=== PATIENT | male | born 1960 | race Hispanic/Latino ===

== ENCOUNTER 2018-10-27 03:49 | Observation (INO) | payer SELFPAY ==
--- NOTE | 2018-10-27 04:53 | XRay Report ---
CHEST 1 VIEW INDICATION: Chest Pain. COMPARISON: None FINDINGS: Support devices: None. Heart: Within normal limits. Lungs/Pleura: No acute air space or interstitial disease. Additional findings: None. IMPRESSION: 1. No acute findings. Signer Name: Austin John MD Signed: 10/27/2018 4:48 AM Workstation Name: [id number]
--- NOTE | 2018-10-27 05:04 | Cat Scan Report ---
CT head without contrast HISTORY: syncope, head injury. TECHNIQUE: Axial imaging performed from the skull apex through the skull base without the use of con trast. All CT scans at this location are performed using CT dose reduction for ALARA by means of aut omated exposure control. COMPARISON: None FINDINGS: Parenchyma: No acute intracranial hemorrhage or parenchymal abnormality. Ventricles: There is mild diffuse brain atrophy with commensurate ventricular enlargement which is l ikely age appropriate. Soft tissues: Soft tissues including the orbits appear normal. Bones: No acute osseous abnormality. Sinuses: Sinuses and mastoid air cells are clear. IMPRESSION: No acute abnormality. Signer Name: Austin John MD Signed: 10/27/2018 5:00 AM Workstation Name: [id number]
--- NOTE | 2018-10-27 05:05 | Cat Scan Report ---
CT cervical spine without contrast INDICATION: syncope, head injury. TECHNIQUE: Axial imaging performed through the cervical spine without the use of contrast. Sagittal and coronal reconstructed images were also reviewed. All CT scans at this location are performed us ing CT dose reduction for ALARA by means of automated exposure control. COMPARISON: None FINDINGS: Alignment: Spinal alignment is normal. Bones: There is no acute osseous abnormality. Mild multilevel discogenic DJD is present. Soft tissues: No acute or significant incidental soft tissue abnormality. IMPRESSION: No acute abnormality. Signer Name: Austin John MD Signed: 10/27/2018 5:01 AM Workstation Name: [id number]
--- NOTE | 2018-10-27 06:21 | Emergency Department Report ---
ED Chest Pain HPI - General Chief Complaint: Chest Pain Stated Complaint: CHEST PAIN Time Seen by Provider: 10/27/18 06:19 Source: patient, EMS Mode of arrival: Stretcher Limitations: No Limitations - History of Present Illness Initial Comments: She is a 58-year-old female presents emergency room complaints of chest pain. Patient states chest pain is left chest radiating to his neck. Patient states his pain is 10 out of 10. Patient states pain is better with rest and worse with exertion. Patient is also complaining of dizziness and weakness. Patient complains of a syncopal episode recently. Patient states when he passed out he hit his head. Patient denies headache at this time. MD Complaint: chest pain -: Sudden Onset: during rest Pain Location: substernal, left chest Pain Radiation: neck Severity: severe Severity scale (0 -10): 10 Quality: sharp Consistency: constant Improves With: rest Worsens With: exertion re: nausea. denies: vomting, diaphoresis, dyspnea, sense of impending doom Other Symptoms: denies: cough, fever, syncope, rash, acid taste in mouth, leg swelling, palpitations, burping Treatments Prior to Arrival: none Aspirin use within the Past 7 Days: (1) Yes - Related Data On Oral Contraceptives: No Home Medications Medication Instructions Recorded Confirmed Last Taken Aspirin EC [Halfprin EC] 81 mg PO QDAY 10/27/18 10/27/18 Unknown Clopidogrel [Plavix] 75 mg PO QDAY 10/27/18 10/27/18 Unknown Furosemide [Lasix] 20 mg PO QDAY 10/27/18 10/27/18 Unknown Gabapentin [Neurontin] 800 mg PO TID 10/27/18 10/27/18 Unknown Lansoprazole [Prevacid] 30 mg PO QDAY 10/27/18 10/27/18 Unknown Lisinopril [Zestril TAB] 40 mg PO QDAY 10/27/18 10/27/18 Unknown Metoprolol [Lopressor] 25 mg PO BID 10/27/18 10/27/18 Unknown Oxycodone HCl [oxyCODONE] 10 mg PO BID 10/27/18 10/27/18 Unknown Simvastatin 40 mg PO HS 10/27/18 10/27/18 Unknown Tamsulosin [Flomax] 0.4 mg PO 10/27/18 10/27/18 Unknown Allergies Allergy/AdvReac Type Severity Reaction Status Date / Time Penicillins Allergy Unknown Verified 10/27/18 03:56 Heart Score - HEART Score History: Moderately suspicious EKG: Non-specific Age: 45-65 Risk factors: > 3 risk factors or hx of atherosclerotic disease Troponin: < normal limit HEART Score: 5 ED Review of Systems ROS: Stated complaint: CHEST PAIN Other details as noted in HPI Constitutional: denies: chills, fever Eyes: denies: eye pain, eye discharge, vision change ENT: denies: ear pain, throat pain Respiratory: denies: cough, shortness of breath, wheezing Cardiovascular: as per HPI, chest pain. denies: palpitations Endocrine: no symptoms reported Gastrointestinal: denies: abdominal pain, nausea, diarrhea Genitourinary: denies: urgency, dysuria Musculoskeletal: denies: back pain, joint swelling, arthralgia Skin: denies: rash, lesions Neurological: weakness. denies: headache, paresthesias Psychiatric: denies: anxiety, depression Hematological/Lymphatic: denies: easy bleeding, easy bruising ED Past Medical Hx - Past Medical History Previous Medical History?: Yes Hx Hypertension: Yes Hx CVA: Yes Hx Heart Attack/AMI: Yes Hx Congestive Heart Failure: Yes Additional medical history: "broken back" - Surgical History Past Surgical History?: Yes Hx Internal Defibrillator: Yes - Family History Family history: no significant - Social History Smoking Status: Current Every Day Smoker Substance Use Type: Marijuana, Prescribed - Medications Home Medications: Home Medications Medication Instructions Recorded Confirmed Last Taken Type Aspirin EC [Halfprin EC] 81 mg PO QDAY 10/27/18 10/27/18 Unknown History Clopidogrel [Plavix] 75 mg PO QDAY 10/27/18 10/27/18 Unknown History Furosemide [Lasix] 20 mg PO QDAY 10/27/18 10/27/18 Unknown History Gabapentin [Neurontin] 800 mg PO TID 10/27/18 10/27/18 Unknown History Lansoprazole [Prevacid] 30 mg PO QDAY 10/27/18 10/27/18 Unknown History Lisinopril [Zestril TAB] 40 mg PO QDAY 10/27/18 10/27/18 Unknown History Metoprolol [Lopressor] 25 mg PO BID 10/27/18 10/27/18 Unknown History Oxycodone HCl [oxyCODONE] 10 mg PO BID 10/27/18 10/27/18 Unknown History Simvastatin 40 mg PO HS 10/27/18 10/27/18 Unknown History Tamsulosin [Flomax] 0.4 mg PO HS 10/27/18 10/27/18 Unknown History ED Physical Exam - General Limitations: No Limitations General appearance: alert, in no apparent distress - Head Head exam: Present: atraumatic, normocephalic - Eye Eye exam: Present: normal appearance - ENT ENT exam: Present: mucous membranes moist - Neck Neck exam: Present: normal inspection - Respiratory Respiratory exam: Present: normal lung sounds bilaterally. Absent: respiratory distress - Cardiovascular Cardiovascular Exam: Present: regular rate, normal rhythm. Absent: systolic murmur, diastolic murmur, rubs, gallop - GI/Abdominal GI/Abdominal exam: Present: soft, normal bowel sounds - Rectal Rectal exam: Present: deferred - Extremities Exam Extremities exam: Present: normal inspection - Back Exam Back exam: Present: normal inspection - Neurological Exam Neurological exam: Present: alert, oriented X3 - Psychiatric Psychiatric exam: Present: normal affect, normal mood - Skin Skin exam: Present: warm, dry, intact, normal color. Absent: rash ED Course Vital Signs 10/27/18 10/27/18 10/27/18 03:56 04:09 05:01 Temperature 98.9 F 98.1 F Pulse Rate 108 H 83 79 Respiratory 14 14 16 Rate Blood Pressure 112/69 146/91 Blood Pressure 146/91 [Left] O2 Sat by Pulse 96 99 99 Oximetry 10/27/18 10/27/18 10/27/18 06:01 07:01 08:01 Temperature Pulse Rate 78 83 71 Respiratory 20 16 17 Rate Blood Pressure 146/91 146/91 132/85 Blood Pressure [Left] O2 Sat by Pulse 99 97 99 Oximetry 10/27/18 10/27/18 10/27/18 09:00 10:00 11:00 Temperature Pulse Rate 86 86 83 Respiratory 16 18 17 Rate Blood Pressure 145/101 151/98 157/96 Blood Pressure [Left] O2 Sat by Pulse 96 97 98 Oximetry 10/27/18 12:00 Temperature Pulse Rate 83 Respiratory 14 Rate Blood Pressure 153/91 Blood Pressure [Left] O2 Sat by Pulse 96 Oximetry - Reevaluation(s) Reevaluation #1: Patient has refused the ER nurses to place a IV or draw blood. Patient has refused me to do an ultrasound-guided EJ or even start ultrasound-guided peripheral line. Patient states he only wants the PICC team to come down and placed an IV 10/27/18 07:02 IV team at bedside. 10/27/18 09:00 Reevaluation #2: I discussed all results the patient. Patient will be admitted to the hospitalist service. Patient agrees to plan of care. 10/27/18 09:59 - Consultations Consultation #1: Hospitalist consulted for admission. Hospitalist to admit patient. Bridge orders placed 10/27/18 09:59 FABIAN score - Fabian Score Age > 65: (0) No Aspirin use within the Past 7 Days: (1) Yes 3 or more CAD Risk Factors: (1) Yes 2 or more Angina events in past 24 hrs: (0) No Known CAD with more than 50% Stenosis: (0) No Elevated Cardiac Markers: (0) No ST Deviation Greater than 0.5mm: (0) No FABIAN Score: 2 ED Medical Decision Making - Lab Data Result diagrams: 10/27/18 09:12 10/27/18 09:12 - EKG Data -: EKG Interpreted by Me EKG shows normal: sinus rhythm, axis, intervals, QRS complexes, ST-T waves Rate: normal - Radiology Data Radiology results: report reviewed, image reviewed interpreted by me: No acute findings. Pacer noted CT head without contrast HISTORY: syncope, head injury. TECHNIQUE: Axial imaging performed from the skull apex through the skull base without the use of contrast. All CT scans at this location are performed using CT dose reduction for ALARA by means of automated exposure control. COMPARISON: None FINDINGS: Parenchyma: No acute intracranial hemorrhage or parenchymal abnormality. Ventricles: There is mild diffuse brain atrophy with commensurate ventricular enlargement which is likely age appropriate. Soft tissues: Soft tissues including the orbits appear normal. Bones: No acute osseous abnormality. Sinuses: Sinuses and mastoid air cells are clear. IMPRESSION: No acute abnormality. CHEST 1 VIEW INDICATION: Chest Pain. COMPARISON: None FINDINGS: Support devices: None. Heart: Within normal limits. Lungs/Pleura: No acute air space or interstitial disease. Additional findings: None. IMPRESSION: 1. No acute findings. CT cervical spine without contrast INDICATION: syncope, head injury. TECHNIQUE: Axial imaging performed through the cervical spine without the use of contrast. Sagittal and coronal reconstructed images were also reviewed. All CT scans at this location are performed using CT dose reduction for ALARA by means of automated exposure control. COMPARISON: None FINDINGS: Alignment: Spinal alignment is normal. Bones: There is no acute osseous abnormality. Mild multilevel discogenic DJD is present. Soft tissues: No acute or significant incidental soft tissue abnormality. IMPRESSION: No acute abnormality. - Medical Decision Making Patient is a 58-year-old male presents with left-sided chest pain. Patient is high risk. Patient's labs done and unremarkable. Basic chest x-ray negative. Patient also had complaints of syncope and chest pain radiating to his neck, so a CT head and neck were done and were negative. Patient admitted to the hospitalist service. - Differential Diagnosis chest pain. Syncope. Dizziness. Weakness. Critical Care Time: Yes Critical care attestation.: If time is entered above; I have spent that time in minutes in the direct care of this critically ill patient, excluding procedure time. Critical Care Time: 45 minutes ED Disposition Clinical Impression: Dizziness Chest pain Qualifiers: Chest pain type: unspecified Qualified Code(s): R07.9 - Chest pain, unspecified Syncope Qualifiers: Syncope type: unspecified Qualified Code(s): R55 - Syncope and collapse Disposition: -09 OP ADMIT IP TO THIS HOSP Is pt being admited?: Yes Does the pt Need Aspirin: No Condition: Critical Time of Disposition: 10:01
[2018-10-27 09:35] LABS: Basophils # (Auto) 0.1 K/mm3 (0.0-0.1); Basophils % (Auto) 1.1 % (0.0-1.8); Eosinophils # (Auto) 0.6 K/mm3 (0.0-0.4); Eosinophils % (Auto) 9.3 % (0.0-4.3); Hematocrit 31.4 % (35.5-45.6); Hemoglobin 10.3 gm/dl (11.8-15.2); Lymphocytes # (Auto) 1.5 K/mm3 (1.2-5.4); Lymphocytes % (Auto) 25.5 % (13.4-35.0); Mean Corpuscular HGB Conc 33 % (32-34); Mean Corpuscular Volume 77 fl (84-94); Monocytes # (Auto) 0.7 K/mm3 (0.0-0.8); Monocytes % (Auto) 11.2 % (0.0-7.3); Platelet Count 264 K/mm3 (140-440); Red Blood Count 4.11 M/mm3 (3.65-5.03); Red Cell Distribution Width 18.8 % (13.2-15.2)
[2018-10-27 09:42] LABS: INR 1.06 (0.87-1.13)
[2018-10-27] MEDS ORDERED: ASPIRIN PO ONE (09:42)
[2018-10-27] MEDS ORDERED: MORPHINE IM ONE (09:42)
[2018-10-27 09:48] LABS: BUN/Creatinine Ratio 14; Blood Urea Nitrogen 13 mg/dL (9-20); Calcium 8.6 mg/dL (8.4-10.2); Hemolysis Index 3
[2018-10-27 09:51] LABS: Partial Thromboplastin Time 23.7 Sec. (24.2-36.6)
--- NOTE | 2018-10-27 10:19 | History and Physical Report ---
History of Present Illness Date of examination: 10/27/18 Date of admission: 10/27/18 Chief complaint: chest pain and syncope History of present illness: She is a 58-year-old male with extensive cardiac history presented emergency room complaints of chest pain and a syncopal episode. Patient states chest pain is left chest radiating to his neck, 10 out of 10 in intensity, pain is better with rest and worse with exertion. Patient is also complaining of dizziness and weakness along with a [place]. Patient states that simillar episode happened multiple times in the past. Patient denies any headache at this time. CT head/Neck in the ER unremarkable. Patient also in chronic pain Mx. His Zachary are normal. He is being admitted for further evaluation and management. Review of Systems Constitutional: denies: chills, fever Eyes: denies: eye pain, eye discharge, vision change ENT: denies: ear pain, throat pain Respiratory: denies: cough, shortness of breath, wheezing Cardiovascular: as per HPI, chest pain. denies: palpitations Endocrine: no symptoms reported Gastrointestinal: denies: abdominal pain, nausea, diarrhea Genitourinary: denies: urgency, dysuria Musculoskeletal: denies: back pain, joint swelling, arthralgia Skin: denies: rash, lesions Neurological: weakness. denies: headache, paresthesias Psychiatric: denies: anxiety, depression Hematological/Lymphatic: denies: easy bleeding, easy bruising Past History Past Medical History: atrial fib (s/p ablation), CAD (s/p stent placement), GERD, hypertension, hyperlipidemia, stroke (with residual right sideded weakness), other (SSS s/p pacemaker, asthma) Past Surgical History: tonsillectomy, Other (s/p ablation for atrial fib, PCM placement) Social history: denies: smoking, alcohol abuse, IV drug use Family history: hypertension, other (HD in brother, ovarian cancer in Mother and sisters) Medications and Allergies Allergies Allergy/AdvReac Type Severity Reaction Status Date / Time Penicillins Allergy Unknown Verified 10/27/18 03:56 Home Medications Medication Instructions Recorded Confirmed Last Taken Type Aspirin EC [Halfprin EC] 81 mg PO QDAY 10/27/18 10/27/18 Unknown History Clopidogrel [Plavix] 75 mg PO QDAY 10/27/18 10/27/18 Unknown History Furosemide [Lasix] 20 mg PO QDAY 10/27/18 10/27/18 Unknown History Gabapentin [Neurontin] 800 mg PO TID 10/27/18 10/27/18 Unknown History Lansoprazole [Prevacid] 30 mg PO QDAY 10/27/18 10/27/18 Unknown History Lisinopril [Zestril TAB] 40 mg PO QDAY 10/27/18 10/27/18 Unknown History Metoprolol [Lopressor] 25 mg PO BID 10/27/18 10/27/18 Unknown History Oxycodone HCl [oxyCODONE] 10 mg PO BID 10/27/18 10/27/18 Unknown History Simvastatin 40 mg PO HS 10/27/18 10/27/18 Unknown History Tamsulosin [Flomax] 0.4 mg PO HS 10/27/18 10/27/18 Unknown History Exam - Physical Exam Narrative exam: - General Limitations: No Limitations General appearance: alert, in no apparent distress - Head Head exam: Present: atraumatic, normocephalic - Eye Eye exam: Present: normal appearance - ENT ENT exam: Present: mucous membranes moist - Neck Neck exam: Present: normal inspection - Respiratory Respiratory exam: Present: normal lung sounds bilaterally. Absent: respiratory distress - Cardiovascular Cardiovascular Exam: Present: regular rate, normal rhythm. Absent: systolic murmur, diastolic murmur, rubs, gallop - GI/Abdominal GI/Abdominal exam: Present: soft, normal bowel sounds - Rectal Rectal exam: Present: deferred - Extremities Exam Extremities exam: Present: normal inspection - Back Exam Back exam: Present: normal inspection - Neurological Exam Neurological exam: Present: alert, oriented X3 - Psychiatric Psychiatric exam: Present: normal affect, normal mood - Constitutional Vitals: Temp Pulse Resp BP Pulse Ox 98.1 F 86 18 151/98 97 10/27/18 04:09 10/27/18 10:00 10/27/18 10:00 10/27/18 10:00 10/27/18 10:00 Results - Labs CBC & Chem 7: 10/27/18 09:12 10/27/18 09:12 Labs: Abnormal lab results 10/27/18 10/27/18 10/27/18 Range/Units 09:12 09:12 09:12 Hgb 10.3 L (11.8-15.2) gm/dl Hct 31.4 L (35.5-45.6) % MCV 77 L (84-94) fl MCH 25 L (28-32) pg RDW 18.8 H (13.2-15.2) % [place] % (Auto) 11.2 H (0.0-7.3) % Eos % (Auto) 9.3 H (0.0-4.3) % Eos # 0.6 H (0.0-0.4) K/mm3 APTT 23.7 L (24.2-36.6) Sec. Chloride 107.6 H (98-107) mmol/L Glucose 119 H (75-100) mg/dL Assessment and Plan Acute chest pain- need to r/o ACS Syncope, Cause unknown - likely vasovagal vs med induced CAD s/p PCI CVA with rightsided weakness SSS with PCM placement Atrial fib s/p ablation, not on AC Rightsided reduculopathy BPH HTN, stable h/o asthma HLD Chronic pain syndrome - admit to tele, trend Zachary - has no Iv access and refusing EJ and central line, Etl Programmer failed to place gabby pheral IV with multiple attempts - cont home meds, follow cardiology recommendation, cont aspirin/plavix, stress test/2d echo tomorrow - Dvt Px - further Mx per hospital course.
[2018-10-27] MEDS ORDERED: TYLENOL PO PRN (10:21)
[2018-10-27] MEDS ORDERED: APRESOLINE IV PRN (10:21)
[2018-10-27] MEDS ORDERED: ZOFRAN IV PRN (10:21)
--- NOTE | 2018-10-27 11:28 | Consultation ---
History of Present Illness Consult date: 10/27/18 Consult reason: chest pain, hypotension, syncope Past History Past Medical History: atrial fib (hx. of paroxysmal atrial fibrillation ,s/p ablation 18 months by [facility] cardiology.), hypertension, hyperlipidemia, stroke (hx. of CVA with right sided weakness in 2010,with altered gait,uses cane for ambulation.). denies: COPD, diabetes Social history: denies: single, smoking Medications and Allergies Allergies Allergy/AdvReac Type Severity Reaction Status Date / Time Penicillins Allergy Unknown Verified 10/27/18 03:56 Home Medications Medication Instructions Recorded Confirmed Last Taken Type Aspirin EC [Halfprin EC] 81 mg PO QDAY 10/27/18 10/27/18 Unknown History Clopidogrel [Plavix] 75 mg PO QDAY 10/27/18 10/27/18 Unknown History Furosemide [Lasix] 20 mg PO QDAY 10/27/18 10/27/18 Unknown History Gabapentin [Neurontin] 800 mg PO TID 10/27/18 10/27/18 Unknown History Lansoprazole [Prevacid] 30 mg PO QDAY 10/27/18 10/27/18 Unknown History Lisinopril [Zestril TAB] 40 mg PO QDAY 10/27/18 10/27/18 Unknown History Metoprolol [Lopressor] 25 mg PO BID 10/27/18 10/27/18 Unknown History Oxycodone HCl [oxyCODONE] 10 mg PO BID 10/27/18 10/27/18 Unknown History Simvastatin 40 mg PO HS 10/27/18 10/27/18 Unknown History Tamsulosin [Flomax] 0.4 mg PO 10/27/18 10/27/18 Unknown History Active Meds: Active Medications Acetaminophen (Tylenol) 650 mg PO Q4H PRN PRN Reason: Pain MILD(1-3)/Fever >100.5/MADERA Acetaminophen/Hydrocodone Bitart ([place] 5/325) 2 each PO Q6H PRN PRN Reason: Pain, Moderate (4-6) Aspirin (Aspirin) 325 mg PO QDAY [facility] Atorvastatin Calcium (Lipitor) 40 mg PO QHS [facility] Carvedilol (Coreg) 3.125 mg PO BID [facility] Docusate Sodium (Colace) 100 mg PO BID [facility] Enoxaparin Sodium (Lovenox) 40 mg SUB-Q QDAY [facility] Famotidine (Pepcid) 10 mg PO BID [facility] Hydralazine HCl (Apresoline) 5 mg IV Q30MIN PRN PRN Reason: Hypertension Ondansetron HCl (Zofran) 4 mg IV Q8H PRN PRN Reason: N/V unrelieved by Reglan Review of Systems Constitutional: no weight gain Respiratory: no hemoptysis Gastrointestinal: no hematemesis Genitourinary Male: no hematuria Rectal: no bleeding Musculoskeletal: neck pain Neurological: weakness Endocrine: no cold intolerance Hematologic/Lymphatic: no easy bruising Allergic/Immunologic: no urticaria Physical Examination Vital Signs Temp Pulse Resp BP Pulse Ox 98.9 F 108 H 14 112/69 96 10/27/18 03:56 10/27/18 03:56 10/27/18 03:56 10/27/18 03:56 10/27/18 03:56 General appearance: no acute distress Neck: Positive: neck supple, trachea midline Cardiac: Positive: Regular Rhythm, S4, Other (Pacemaker in right infraclavicular area.). Negative: Audible Murmur Lungs: Positive: Normal Breath Sounds Neuro: Positive: Other (Mild right sided weakness.) Male genitourinary: Positive: deferred Extremities: Absent: edema Results 10/27/18 09:12 10/27/18 09:12 Coagulation 10/27/18 Range/Units 09:12 PT 13.5 (12.2-14.9) Sec. INR 1.06 (0.87-1.13) APTT 23.7 L (24.2-36.6) Sec. CBC 10/27/18 Range/Units 09:12 WBC 6.1 (4.5-11.0) K/mm3 RBC 4.11 (3.65-5.03) M/mm3 Hgb 10.3 L (11.8-15.2) gm/dl Hct 31.4 L (35.5-45.6) % Plt Count 264 (140-440) K/mm3 Lymph # 1.5 (1.2-5.4) K/mm3 [place] # 0.7 (0.0-0.8) K/mm3 Eos # 0.6 H (0.0-0.4) K/mm3 Baso # 0.1 (0.0-0.1) K/mm3 Comprehensive Metabolic Panel 10/27/18 Range/Units 09:12 Sodium 143 (137-145) mmol/L Potassium 3.9 (3.6-5.0) mmol/L Chloride 107.6 H (98-107) mmol/L Carbon Dioxide 27 (22-30) mmol/L BUN 13 (9-20) mg/dL Creatinine 0.9 (0.8-1.5) mg/dL Glucose 119 H (75-100) mg/dL Calcium 8.6 (8.4-10.2) mg/dL EKG interpretations - Telemetry EKG Rhythm: Sinus Rhythm (EKG x 3 unremarkable.) Assessment and Plan Patient while in airport this [place] has anterior chest pain radiating to neck,?SOB,'fainted" for 5 minutes,were evaluated by EMS,brought to ER,EKG x 3 unremarkable in [place]Presently chest pain is better.No IV access.Patient is comfortable.In NAD. Etiology of chest pain is not clear.GIves hx. of MN and stenting in 2009,closely followed by [facility] cardiology and also in [place].Taking meds without problems. Agree with monitoring in telemetry,get serial enzymes,plan for iv Lexiscan and get echo doppler.Monitor for any arrythmia.Stable cardiac arshad.Etiology of his symptoms not clear. - Patient Problems (1) Syncope Current Visit: Yes Status: Acute Qualifiers: Syncope type: unspecified Qualified Code(s): R55 - Syncope and collapse (2) CAD (coronary artery disease) Current Visit: Yes Status: Acute Plan to address problem: Hx. of MN and coronary stenting in 2009. (3) Hypertension Current Visit: Yes Status: Acute Plan to address problem: Since his 20's,not controllable according to him. (4) Hyperlipidemia Current Visit: Yes Status: Acute (5) Hiatal hernia Current Visit: Yes Status: Acute (6) Atrial fibrillation Current Visit: Yes Status: Acute Plan to address problem: hx. of atrial fibrillation ,s/p ablation according to him 18 months ago.Presently in [place],not on antoicoagulation. hx. of SSS ,s/p pacemaker for syncope 6-7 years by [facility].
[2018-10-27] MEDS: PLAVIX PO SCH (12:19)
[2018-10-27] MEDS ORDERED: PLAVIX ONE (12:20)
[2018-10-27] MEDS ORDERED: NORCO 5/325 ONE (12:36)
[2018-10-27] MEDS: NORCO 5/325 PO PRN (12:42)
[2018-10-27] MEDS: ZESTRIL PO SCH (13:48)
[2018-10-27] MEDS: LASIX PO SCH (13:49)
[2018-10-27] MEDS: NEURONTIN PO SCH ×2 (13:49→21:57)
[2018-10-27] MEDS ORDERED: NON-FORMULARY (Gabapentin [Neurontin] 800 MG) PO SCH (14:00)
[2018-10-27] MEDS: OxyCONTIN PO SCH ×2 (17:37→21:57)
[2018-10-27 20:48] LABS: Bilirubin,Urine NEG (Negative); Blood,Urine NEG (Negative); Color,Urine Straw (Yellow); Mucus,Urine FEW /HPF; Protein,Urine <15 mg/dL mg/dL (Negative); Urobilinogen,Urine < 2.0 mg/dL (<2.0); WBC,Urine < 1.0 /HPF (0.0-6.0)
[2018-10-27 20:56] LABS: Amphetamine Screen,Urine PRESUMPTIVE NEGATIVE; Benzodiazepines Screen,Urine PRESUMPTIVE NEGATIVE; Cannabinoid Screen,Urine PRESUMPTIVE NEGATIVE; Cocaine Screen,Urine PRESUMPTIVE NEGATIVE; Methadone Screen,Urine PRESUMPTIVE NEGATIVE; Opiate Screen,Urine PRESUMPTIVE NEGATIVE
[2018-10-27] MEDS: COREG PO SCH (21:57)
[2018-10-27] MEDS: LOPRESSOR PO SCH (21:57)
[2018-10-27] MEDS: COLACE PO SCH ×2 (21:57→22:00)
[2018-10-27] MEDS ORDERED: ROXICODONE PO SCH (22:00)
[2018-10-27] MEDS ORDERED: FLOMAX PO SCH (22:00)
[2018-10-27] MEDS ORDERED: NON-FORMULARY (Oxycodone Hcl [Oxycodone] 10 MG) PO SCH (22:00)
[2018-10-27] MEDS ORDERED: PEPCID PO SCH (22:00)
[2018-10-27] MEDS ORDERED: AMBIEN PO PRN (22:35)
--- NOTE | 2018-10-28 09:14 | Progress Note ---
Assessment and Plan The patient will need IV access to proceed with stress test. Further recommendations pending hospital course. The patient was evaluated by Dr. Armendariz, who developed assessment and plan. - Patient Problems (1) Chest pain Current Visit: Yes Status: Acute Qualifiers: Chest pain type: unspecified Qualified Code(s): R07.9 - Chest pain, unspecified (2) CAD (coronary artery disease) Current Visit: Yes Status: Chronic (3) Hypertension Current Visit: Yes Status: Chronic (4) Atrial fibrillation Current Visit: No Status: Acute Qualifiers: Atrial fibrillation type: paroxysmal Qualified Code(s): I48.0 - Paroxysmal atrial fibrillation (5) H/O: CVA (cerebrovascular accident) Current Visit: No Status: Chronic (6) SSS (sick sinus syndrome) Current Visit: Yes Status: Chronic (7) Syncope Current Visit: Yes Status: Acute Qualifiers: Syncope type: unspecified Qualified Code(s): R55 - Syncope and collapse Subjective Date of service: 10/28/18 Interval history: Attempted to perform Lexiscan stress this morning, but the patient has no IV access. Objective Last Vital Signs Temp 97.6 F 10/28/18 03:57 Pulse 66 10/28/18 08:56 Resp 17 10/28/18 03:57 BP 132/75 10/28/18 03:57 Pulse Ox 96 10/28/18 03:57 - Physical Examination General: No Apparent Distress HEENT: Positive: PERRL Neck: Positive: neck supple, trachea midline Cardiac: Positive: Reg Rate and Rhythm Lungs: Positive: Normal Exam Neuro: Positive: Grossly Intact, Other (Mild right sided weakness.) Abdomen: Positive: Unremarkable Musculoskeletal: No Pain Extremities: Present: normal. Absent: edema - Labs and Meds Coagulation 10/27/18 Range/Units 09:12 PT 13.5 (12.2-14.9) Sec. INR 1.06 (0.87-1.13) APTT 23.7 L (24.2-36.6) Sec. CBC 10/27/18 Range/Units 09:12 WBC 6.1 (4.5-11.0) K/mm3 RBC 4.11 (3.65-5.03) M/mm3 Hgb 10.3 L (11.8-15.2) gm/dl Hct 31.4 L (35.5-45.6) % Plt Count 264 (140-440) K/mm3 Lymph # 1.5 (1.2-5.4) K/mm3 Yancey # 0.7 (0.0-0.8) K/mm3 Eos # 0.6 H (0.0-0.4) K/mm3 Baso # 0.1 (0.0-0.1) K/mm3 Comprehensive Metabolic Panel 10/27/18 Range/Units 09:12 Sodium 143 (137-145) mmol/L Potassium 3.9 (3.6-5.0) mmol/L Chloride 107.6 H (98-107) mmol/L Carbon Dioxide 27 (22-30) mmol/L BUN 13 (9-20) mg/dL Creatinine 0.9 (0.8-1.5) mg/dL Glucose 119 H (75-100) mg/dL Calcium 8.6 (8.4-10.2) mg/dL - Telemetry EKG Rhythm: Sinus Rhythm
--- NOTE | 2018-10-28 09:52 | Event Note ---
Date: 10/28/18 Patient refused EJ/central line while in the ER and on the floor, refused lab draw, IV team failed to place a PICC line or midline after multiple attempt.
[2018-10-28] MEDS ORDERED: ASPIRIN PO SCH (10:00)
[2018-10-28] MEDS ORDERED: NON-FORMULARY (Lansoprazole 30 MG) PO SCH (10:00)
[2018-10-28] MEDS ORDERED: HALFPRIN EC PO SCH (10:00)
[2018-10-28] MEDS ORDERED: LOVENOX SUB-Q SCH (10:00)
[2018-10-28] MEDS ORDERED: PROTONIX PO SCH (10:00)
[2018-10-28] MEDS: COLACE PO SCH (10:19)
[2018-10-28] MEDS: LASIX PO SCH (10:19)
[2018-10-28] MEDS: OxyCONTIN PO SCH (10:19)
[2018-10-28] MEDS: PLAVIX PO SCH (10:19)
[2018-10-28] MEDS: ZESTRIL PO SCH (10:19)
[2018-10-28] MEDS: LOPRESSOR PO SCH (10:21)
[2018-10-28] MEDS: NEURONTIN PO SCH ×2 (10:25→13:14)
[2018-10-28] MEDS: COREG PO SCH (10:25)
--- NOTE | 2018-10-28 11:06 | Event Note ---
Date: 10/28/18 The patient is currently not anticoagulated for atrial fibrillation. He reports that his primary engineering program analyst previously discontinued Eliquis d/t his DAPT. Howeverr, we recommend discontinuing Plavix and starting Eliquis, since his stent was in 2009 and he no longer needs DAPT. He is agreeable to this change. He does state he will need assistance with obtaining Eliquis d/t cost. Recommend discussing with case management. Also, Dr. Jeffers alerted us to the fact that he is refusing a midline and central line, which prohibits performing a nuclear stress test. If he continues to refuse and the test cannot be performed, he may be discharged from our standpoint. Deanna Villareal NP / Calvin Armendariz MD
--- NOTE | 2018-10-28 12:18 | Discharge Summary ---
Providers - Providers Date of Admission: 10/27/18 10:01 Date of discharge: 10/28/18 Attending physician: MELYSSA WEBB 10/27/18 10:20 Physical Therapy Evaluation and Treat [CONS] Routine Comment: Reason For Exam: syncope 10/27/18 17:09 Consult to Physician [CONS] Routine Comment: Consulting Provider: MAHESH GANT Physician Instructions: Reason For Exam: multiple failed attempt for iv access [facility] Reason for admission: chest pain Condition: Critical Pertinent studies: CT head/ cervical spine: No acute abnormality. CXR: 1. No acute findings. Hospital course: 58-year-old male with extensive cardiac history presented emergency room complaints of chest pain and a syncopal episode. Patient states chest pain is left chest radiating to his neck, 10 out of 10 in intensity, pain is better with rest and worse with exertion. Patient is also complaining of dizziness and weakness along with [place]. Patient states that simillar episode happened multiple times in the past. Patient denies any headache at this time. CT head/Neck in the ER unremarkable. Patient also in chronic pain Mx. His Zachary are normal. He is being admitted for further evaluation and management. Patient refused EJ and central line, Horse Riding Coach Or Instructor failed to place peripheral IV with multiple attempts. Cardiology placed him on eliquis and recommended outpt f/u with his alligator shear operator. He was counselled to come back if he changes his mind or symptom worsens. Discharge diagnosis: Acute chest pain - ACS ruled out with initial work up - no changes on EKG, CE normal. will f/u with his alligator shear operator outpt - refused to have line placed for stress test and refused lab work. will f/u outpt Syncope, Cause unknown - likely vasovagal vs med induced CAD s/p PCI CVA with rightsided weakness SSS with PCM placement Atrial fib s/p ablation, placed on eliquis Rightsided reduculopathy BPH HTN, stable h/o asthma HLD Chronic pain syndrome Disposition: TO HOME OR SELFCARE Time spent for discharge: 34 minutes Core Measure Documentation - Palliative Care Palliative Care/ Comfort Measures: Not Applicable - Core Measures Any of the following diagnoses?: history only Exam - Physical Exam Narrative exam: - General Limitations: No Limitations General appearance: alert, in no apparent distress - Head Head exam: Present: atraumatic, normocephalic - Eye Eye exam: Present: normal appearance - ENT ENT exam: Present: mucous membranes moist - Neck Neck exam: Present: normal inspection - Respiratory Respiratory exam: Present: normal lung sounds bilaterally. Absent: respiratory distress - Cardiovascular Cardiovascular Exam: Present: regular rate, normal rhythm. Absent: systolic murmur, diastolic murmur, rubs, gallop - GI/Abdominal GI/Abdominal exam: Present: soft, normal bowel sounds - Rectal Rectal exam: Present: deferred - Extremities Exam Extremities exam: Present: normal inspection - Back Exam Back exam: Present: normal inspection - Neurological Exam Neurological exam: Present: alert, oriented X3 - Psychiatric Psychiatric exam: Present: normal affect, normal mood - Constitutional Vitals: Temp Pulse Resp BP Pulse Ox 97.6 F 66 20 132/75 97 10/28/18 03:57 10/28/18 08:56 10/28/18 10:19 10/28/18 03:57 10/28/18 10:00 Plan Activity: fall precautions Weight Bearing Status: Non-Weight Bearing Diet: low fat, low salt Additional Instructions: f/u with alligator shear operator on Tuesday. Please come back to ER or call 911 if symptom worsen Follow up with: SUMAN PATIÑO MD [Primary Care Provider] - 3-5 Days Prescriptions: Apixaban [Eliquis] 5 mg PO Q12HR #60 tablet
[2018-10-28 13:08] VITALS: BP 118/70
[2018-10-28] MEDS: NORCO 5/325 PO PRN (13:13)
[2018-10-28] MEDS ORDERED: ELIQUIS PO SCH (22:00)
== END 2018-10-28 14:15 | disposition home or self-care (01) ==
LOC: ED 03:49 → 4A 10:01
PROVIDERS: ADMIT Internal Medicine; ATTEND Internal Medicine
DX: R07.89 Other chest pain (principal); R55 Syncope and collapse; I48.91 Unspecified atrial fibrillation; I25.10 Atherosclerotic heart disease of native coronary artery without angina pectoris; N40.0 Benign prostatic hyperplasia without lower urinary tract symptoms; I10 Essential (primary) hypertension; J45.909 Unspecified asthma, uncomplicated; G89.4 Chronic pain syndrome; E78.5 Hyperlipidemia, unspecified; K21.9 Gastro-esophageal reflux disease without esophagitis; Z86.73 Personal history of transient ischemic attack (TIA), and cerebral infarction without residual deficits
CPT/HCPCS: 36415; 70450; 71045; 72125; 80048; 80307; 81001; 82550; 84484; 85025; 85610; 85730; 93005; 93010; 93306; 96372; 99291; A9270; G0378; J1650; J2270